=== PATIENT | male | born 1940 | race Caucasian/White ===

== ENCOUNTER 2016-09-15 09:34 | Emergency (ER) | payer MEDICARE, OTHER ==
[2016-09-15 09:48] VITALS: BP 148/57
--- NOTE | 2016-09-15 10:20 | CT ---
Head wo Cont HISTORY: Confusion and weakness. COMPARISON: None TECHNIQUE: Noncontrast enhanced axial cuts were obtained of the brain. FINDINGS:There is no cerebral or subdural hemorrhage. There is no mass effect or edema. The ventricl es and CSF spaces are appropriate for age. 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 No acute ischemic changes are demonstrated. No space occupying lesions are demonstrated. The orbi naheed structures are unremarkable. The sinuses demonstrate normal aeration. IMPRESSION: 1. No acute findings.
[2016-09-15] MEDS ORDERED: Levofloxacin 250 MG Tab PO ONE (11:20)
--- NOTE | 2016-09-15 11:24 | CR ---
Two-view chest There is hyperinflation consistent with COPD. There is diffuse interstitial fibrosis. There is scarr ing in the lung apices. There are no focal infiltrates. The heart and vascular structures are within normal limits. Impression: 1. COPD. 2. Interstitial fibrosis. 3. Apical scarring.
--- NOTE | 2016-09-15 11:26 | EDM.PDOC ---
ED HPI GENERAL MEDICAL PROBLEM - General Chief Complaint: General Stated Complaint: POSSIBLE STROKE Time Seen by Provider: 09/15/16 09:50 Source of Information: Reports: Patient, Family History Limitations: Reports: No limitations - History of Present Illness INITIAL COMMENTS - FREE TEXT/NARRATIVE: 75-year-old male sent over from the clinic because of a possible "stroke". This morning at 4:30 AM he went out to his chair to have a smoke, and when he was done he had pain in his lower extremities and felt too weak to get out of the chair. His had to come and help him out of the chair. He said some intermittent low-grade fevers and cough, he went into the clinic this morning for a routine followup mentioned his lower extremity weakness so he was sent over the emergency room. His sees no change in his behavior or speech, he denies a headache. His main complaint is just generalized weakness, worse in his lower extremities along with lower extremity pain. Onset: gradual Severity: moderate Associated Symptoms: Reports: cough, fever/chills, malaise, shortness of breath , weakness Back Pain Score (Numeric/FACES): 5 Bilateral Upper Leg Pain Score (Numeric/FACES): 6 - Related Data Allergies Allergy/AdvReac Type Severity Reaction Status Date / Time nicotine [From [facility]] Allergy Itching Verified 05/20/16 07:14 Home Meds: Home Meds Ferrous Sulfate 325 mg PO DAILY 06/17/15 [History] amLODIPine [Norvasc] 10 mg PO DAILY 06/17/15 [History] predniSONE [Prednisone] 5 mg PO DAILY 06/17/15 [History] Folic Acid 1 mg PO DAILY 11/18/15 [History] Past Medical History HEENT History: Reports: Hard of hearing, Impaired vision Other HEENT History: wears glasses Cardiovascular History: Reports: Hypertension Respiratory History: Reports: COPD, SOB Gastrointestinal History: Reports: Colon polyp Musculoskeletal History: Reports: Arthritis - Infectious Disease History Infectious Disease History: Reports: Chicken pox, Measles - Past Surgical History HEENT Surgical History: Reports: Oral surgery, Tonsillectomy Other Respiratory Surgeries/Procedures: took non cancerous node from right lung may 2016 GI Surgical History: Reports: Colonoscopy, EGD, Hernia, inguinal Musculoskeletal Surgical History: Reports: Hip replacement, Other (see below) Other Musculoskeletal Surgeries/Procedures:: 4 back surgeries Dermatological Surgical History: Reports: None Social & Family History - Family History Family Medical History: Noncontributory HEENT: Reports: Hearing impairment Cardiac: Reports: DC, Stent OBGYN: Reports: Musculoskeletal: Reports: Arthritis, RA Neurological: Reports: CVA Immunologic: Reports: SLE Oncologic: Reports: Bone, Non-Hodgkin's lymphoma - Tobacco Use Smoking Status *Q: Heavy Tobacco Smoker Years of Tobacco use: 60 Packs/Tins Daily: 1 Used Tobacco, but Quit: No Second Hand Smoke Exposure: No - Caffeine Use Caffeine Use: Reports: Coffee - Recreational Drug Use Recreational Drug Use: No ED ROS GENERAL - Review of Systems Review Of Systems: See Below Constitutional: Reports: fever, chills, malaise, weakness HEENT: Reports: No symptoms Respiratory: Reports: shortness of breath, cough, sputum Cardiovascular: Denies: Chest pain, Palpitations GI/Abdominal: Denies: Abdominal pain, Nausea, Vomiting Musculoskeletal: Reports: no symptoms Neurological: Reports: confusion. Denies: dizziness, headache Psychiatric: Reports: No symptoms ED EXAM, GENERAL - Physical Exam Exam: See Below Exam Limited By: No limitations General Appearance: alert, no apparent distress Eye Exam: bilateral eye: EOMI Throat/Mouth: Normal inspection Respiratory/Chest: rales, rhonchi (Diffuse bilateral rales and rhonchi, decreased breath sounds on the right) Cardiovascular: irregularly irregular GI/Abdominal: soft, non tender Extremities: normal inspection, other (He has symmetric range of motion and strength to the extremities). No: pedal edema Neurological: alert, oriented, no motor/sensory deficits Psychiatric: normal affect, normal mood Skin Exam: Warm, Dry Course - Vital Signs Last Recorded V/S: Last Vital Signs Temp 99 F 09/15/16 09:48 Pulse 71 09/15/16 09:48 Resp 16 09/15/16 09:48 BP 148/57 H 09/15/16 09:48 Pulse Ox 93 L 09/15/16 09:48 - Orders/Labs/Meds Labs: Laboratory Tests 09/15/16 09/15/16 Range/Units 10:01 10:01 WBC 24.7 H (4.5-11.0) K/uL RBC 3.80 L (4.30-5.90) M/uL Hgb 11.9 L D (12.0-15.0) g/dL Hct 36.4 L (40.0-54.0) % MCV 96 (80-98) fL MCH 31 (27-31) pg MCHC 33 (32-36) % Plt Count 197 (150-400) K/uL Add Manual Diff Yes Neutrophils % (Manual) 79 H (36-66) % Band Neutrophils % 1 L (5-11) % Lymphocytes % (Manual) 8 L (24-44) % Monocytes % (Manual) 12 H (2-6) % Sodium 137 L (140-148) mmol/L Potassium 3.8 (3.6-5.2) mmol/L Chloride 102 (100-108) mmol/L Carbon Dioxide 25 (21-32) mmol/L Anion Gap 13.8 (5.0-14.0) mmol/L BUN 20 H (7-18) mg/dL Creatinine 1.3 (0.8-1.3) mg/dL Est Cr Clr Drug Dosing TNP Estimated GFR (MDRD) 54 L (>60) Glucose 113 H (74-106) mg/dL Calcium 8.3 L (8.5-10.1) mg/dL Total Bilirubin 1.4 H (0.2-1.0) mg/dL AST 13 L (15-37) U/L ALT 15 (12-78) U/L Alkaline Phosphatase 43 L (46-116) U/L Creatine Kinase 51 (39-308) U/L Total Protein 6.6 (6.4-8.2) g/dL Albumin 2.8 L (3.4-5.0) g/dL Globulin 3.8 H (2.3-3.5) g/dL Albumin/Globulin Ratio 0.7 L (1.2-2.2) Meds: Medications Discontinued Medications Generic Name Dose Route Start Last Admin Trade Name Freq PRN Reason Stop Dose Admin Levofloxacin 750 mg 09/15/16 11:20 09/15/16 11:26 Levaquin PO 09/15/16 11:21 750 mg ONETIME ONE Administration - Re-Assessments/Exams Free Text/Narrative Re-Assessment/Exam: 09/15/16 11:44 CT was obtained of the head which is negative. CBC revealed a white count of 24 ,000, possibly due to steroid treatment which was started recently. His temperature was 99.0. Despite O2 sats being normal, the patient had persistent productive cough. A chest x-ray showed chronic changes but no acute infiltrate. 09/15/16 11:45 The rest of the patient's labs were nonspecific. I also shiva a CK because of the extremity and muscle pain, this was normal. Patient was given 750 mg of Levaquin orally, to be followed by 500 mg daily for at least a week. He was reassured that there is no evidence of stroke at this time. The patient requested us to call the clinic to see if they could finish the patient's appointment but he was told he would have to reschedule. Departure - Departure Time of Disposition: 11:34 Disposition: Home, Self-Care 01 Condition: fair Clinical Impression: Bronchitis, Weakness of both legs, Confusion Instructions: Acute Bronchitis Referrals: Gian Daley MD [Primary Care Provider] - Forms: ED Department Discharge Care Plan Goals: Continue your current medications, add one dose of Levaquin each morning for at least 7 more days. Increase activity as tolerated and return if worsening or concerns.
== END 2016-09-15 11:34 | disposition home or self-care (01) ==
LOC: JP.ED 09:34
DX: J40 Bronchitis, not specified as acute or chronic (principal); R29.898 Other symptoms and signs involving the musculoskeletal system; R41.0 Disorientation, unspecified; I10 Essential (primary) hypertension; J44.9 Chronic obstructive pulmonary disease, unspecified; M19.90 Unspecified osteoarthritis, unspecified site; Z98.890 Other specified postprocedural states; Z79.899 Other long term (current) drug therapy; F17.210 Nicotine dependence, cigarettes, uncomplicated; Z88.8 Allergy status to other drugs, medicaments and biological substances
CPT/HCPCS: 36415; 70450; 71020; 80053; 82550; 85025; 99285; A9270; 99283